=== PATIENT | male | born 1975 | race American Indian/Alaskan Native ===

== ENCOUNTER 2020-05-27 03:49 | Emergency (ER) | payer SELFPAY ==
[2020-05-27] MEDS ORDERED: ALBUTEROL 2.5 MG/3 ML NEBU IH ONE (04:52)
[2020-05-27] MEDS ORDERED: dexAMETHasone 20 MG/5 ML VIAL IM ONE (04:52)
[2020-05-27] MEDS ORDERED: IPRATROPIUM 0.02% NEBU 2.5 ML IH ONE (04:52)
--- NOTE | 2020-05-27 04:58 | Emergency Department Report ---
ED Asthma HPI - General Chief Complaint: Adult Asthma Stated Complaint: ASTHMA. PAIN ALL OVER Time Seen by Provider: 05/27/20 04:51 Source: patient Mode of arrival: Ambulatory Limitations: No Limitations - History of Present Illness Initial Comments: 44-year-old -[place] male with a past medical history of asthma, skin cancer, HIV presents to the emergency room complaining of asthma attack that he has had for 3 days and has been out of his inhaler. Patient denies any fever or chills. Does have a cough. Denies any Covid positive contact. Is currently on no medication for his HIV. MD Complaint: "asthma attack" Onset/Timin -: days(s) Asthma History: history of frequent attac Context: ran out of meds Associated Symptoms: dry cough - Related Data Previous Rx's Medication Instructions Recorded Last Taken Type Albuterol Sulfate [Proventil Hfa] 6.7 gm IH Q6H #1 hfa.aer.ad 05/27/20 Unknown Rx Prednisone [predniSONE 10 mg 10 mg PO .TAPER #1 tab.ds.pk 05/27/20 Unknown Rx (6-Day Pack, 21 Tabs)] Allergies Allergy/AdvReac Type Severity Reaction Status Date / Time Sulfa (Sulfonamide Allergy Unknown Verified 05/27/20 05:20 Antibiotics) ED Review of Systems ROS: Stated complaint: ASTHMA. PAIN ALL OVER Other details as noted in HPI Comment: All other systems reviewed and negative ED Past Medical Hx - Past Medical History Previous Medical History?: Yes Hx of Cancer: Yes (Skin) Hx Asthma: Yes Hx HIV: Yes - Surgical History Past Surgical History?: Yes Additional Surgical History: Anal Fissure - Social History Smoking Status: Never Smoker - Medications Home Medications: Home Medications Medication Instructions Recorded Confirmed Last Taken Type Albuterol Sulfate [Proventil Hfa] 6.7 gm IH Q6H #1 hfa.aer.ad 05/27/20 Unknown Rx Prednisone [predniSONE 10 mg 10 mg PO .TAPER #1 tab.ds.pk 05/27/20 Unknown Rx (6-Day Pack, 21 Tabs)] ED Physical Exam - General Limitations: No Limitations General appearance: alert, in no apparent distress - Head Head exam: Present: atraumatic, normocephalic - Eye Eye exam: Present: normal appearance - ENT ENT exam: Present: mucous membranes moist - Neck Neck exam: Present: normal inspection, full ROM - Respiratory Respiratory exam: Present: rhonchi, prolonged expiratory - Cardiovascular Cardiovascular Exam: Present: regular rate, normal rhythm. Absent: systolic murmur, diastolic murmur, rubs, gallop - Back Exam Back exam: Present: normal inspection - Neurological Exam Neurological exam: Present: alert, oriented X3, normal gait - Psychiatric Psychiatric exam: Present: normal affect, normal mood - Skin Skin exam: Present: warm, dry, intact, normal color. Absent: rash ED Course Vital Signs 05/27/20 05/27/20 05/27/20 04:19 05:19 05:25 Temperature 97.6 F Pulse Rate 99 H Pulse Rate [ 88 Bilateral] Respiratory 18 20 Rate Respiratory 16 Rate [Bilateral ] Blood Pressure 125/90 Blood Pressure [Right] O2 Sat by Pulse 97 96 Oximetry 05/27/20 05/27/20 06:40 07:11 Temperature Pulse Rate 99 H 90 Pulse Rate [ Bilateral] Respiratory 16 Rate Respiratory Rate [Bilateral ] Blood Pressure Blood Pressure 139/93 129/79 [Right] O2 Sat by Pulse 97 97 Oximetry ED Medical Decision Making - Radiology Data Radiology results: report reviewed Chest x-ray no acute abnormalities - Medical Decision Making 44-year-old -[place] male with a past medical history of asthma, skin cancer, HIV presents to the emergency room complaining of asthma attack that he has had for 3 days and has been out of his inhaler. Patient denies any fever or chills. Does have a cough. Denies any Covid positive contact. Is currently on no medication for his HIV. Albuterol Atrovent peak flow and chest x-ray has been ordered Discussed with patient I will discharge him on steroids albuterol inhaler and a referral to a primary care provider. Critical care attestation.: If time is entered above; I have spent that time in minutes in the direct care of this critically ill patient, excluding procedure time. ED Disposition Clinical Impression: Asthma attack Disposition: DC-01 TO HOME OR SELFCARE Is pt being admited?: No Does the pt Need Aspirin: No Condition: Stable Instructions: Asthma, Adult, [id number] Additional Instructions: Chest x-ray is negative. Complete prednisone and use inhaler as needed. Prescriptions: Prednisone [predniSONE 10 mg (6-Day Pack, 21 Tabs)] 10 mg PO .TAPER #1 tab.ds.pk Albuterol Sulfate [Proventil Hfa] 6.7 gm IH Q6H #1 hfa.aer.ad Referrals: PRIMARY CARE, [Primary Care Provider] - 3-5 Days Forms: Work/School Release Form(ED)
--- NOTE | 2020-05-27 06:07 | XRay Report ---
. XR chest 1V ap INDICATION / CLINICAL INFORMATION: wheezing COMPARISON: None available. FINDINGS: SUPPORT DEVICES: None. HEART / MEDIASTINUM: No significant abnormality. LUNGS / PLEURA: No definite airspace disease. Costophrenic sulci are sharp. No pneumothorax. ADDITIONAL FINDINGS: No significant additional findings. IMPRESSION: 1. No acute findings. Signer Name: Camilo Graham MD Signed: 05/27/2020 6:03 AM Workstation Name: [id number]
[2020-05-27 07:12] VITALS: BP 129/79
== END 2020-05-27 07:24 | disposition home or self-care (01) ==
LOC: ED 03:49
DX: J45.909 Unspecified asthma, uncomplicated (principal); Z21 Asymptomatic human immunodeficiency virus [HIV] infection status; Z88.2 Allergy status to sulfonamides; Z79.899 Other long term (current) drug therapy; Z98.890 Other specified postprocedural states
CPT/HCPCS: 71045; 94644; 96372; 99283; J1100